=== PATIENT | female | born 1985 | race Caucasian/White ===

== ENCOUNTER 2016-07-24 05:17 | Day surgery (SDC) | payer OTHER ==
[2016-07-20 15:49] LABS: AGAP 13; BUN 3 mg/dL (8-22); CALCIUM 9.1 mg/dL (8.8-10.2); CHLORIDE 103 mmol/L (98-107); COSMO 277; POTASSIUM 4.4 mmol/L (3.5-5.1); SODIUM 141 mmol/L (136-145); TCO2 25 mmol/L (25-35)
[2016-07-20 16:17] LABS: HEMOGLOBIN 13.5 g/dL (12.0-16.0); MCHC 32.9 g/dL (33-37); MCV 88.2 FL (81-99); RBC 4.65 XMIL (4.2-5.4)
[2016-07-20 16:24] LABS: TOTAL BILIRUBIN 0.31 mg/dL (0.20-1.00)
[2016-07-24] MEDS ORDERED: REGLAN ONE (05:29)
[2016-07-24] MEDS ORDERED: PEPCID ONE (05:29)
[2016-07-24] MEDS ORDERED: KEFZOL 1 GM/D5W 50 ML ONE (05:29)
[2016-07-24] MEDS ORDERED: LR 1,000 ML ONE ×3 (05:29→08:55)
[2016-07-24] MEDS ORDERED: SODIUM CHLORIDE 0.9% ONE (06:26)
[2016-07-24] MEDS ORDERED: MARCAINE 0.25% PF/EPI 1:200,000 ONE (06:26)
[2016-07-24] MEDS: MORPHINE ONE ×2 (07:45→07:51)
[2016-07-24] MEDS ORDERED: VERSED ONE (07:47)
[2016-07-24] MEDS ORDERED: FENTANYL ONE (07:47)
[2016-07-24] MEDS ORDERED: DIPRIVAN 1% ONE (07:47)
[2016-07-24] MEDS ORDERED: ZOFRAN IV PRN (08:25)
[2016-07-24] MEDS ORDERED: NORCO-10 PO PRN (08:25)
--- NOTE | 2016-07-24 08:26 | Diag Imaging Result Document ---
PROCEDURE NAME: OPERATIVE CHOLANGIOGRAM - 07/24/2016 SINGLE VIEW FROM AN INTRAOPERATIVE CHOLANGIOGRAM TAKEN BY DR. CONCEPCION: FINDINGS: Contrast fills the common bile duct and is emptied into the duodenum. No stone or stricture. Total dose is 11.6 mGy. Fluoro time was 38 seconds.
[2016-07-24] MEDS ORDERED: NORCO-10 ONE (08:27)
--- NOTE | 2016-07-24 08:28 | OPERATIVE NOTE ---
PROCEDURE DATE: 07/24/2016 PROCEDURE PERFORMED: Laparoscopic cholecystectomy with operative cholangiogram. SURGEON: Ottoniel Whitlock MD. SUPERVISOR [employer] OUTFITTING: Tamara. PREOPERATIVE DIAGNOSIS: Biliary dyskinesia. POSTOPERATIVE DIAGNOSIS: Biliary dyskinesia. FINDINGS: Cholangiogram revealed a normal size common duct, free flow in the duodenum. No intraluminal filling defects were seen. DESCRIPTION OF PROCEDURE: Satisfactory general endotracheal anesthesia was achieved. The abdomen is prepped and draped in a sterile fashion. Local anesthesia was achieved with 0.25 Marcaine with epinephrine at the umbilicus in each trocar site. We incised the skin at the umbilicus and carried our incision down to the fascia. We scored the fascia, introduced 11 trocar Optiview technique into the abdominal cavity. We insufflated through this trocar. Under direct visualization, we introduced a 5 trocar midclavicular line, a 5 trocar near the anterior axillary line, and an 11 mm trocar in the midepigastrium. We placed the patient in reverse Trendelenburg and turned her to the left. We grasped the fundus of the gallbladder, reflected it cephalad, and began dissection of the triangle of Calot. We identified the cystic duct, clipped it near its junction of the gallbladder. We incised the cystic duct introduced a Malini catheter, shot a cholangiogram. The findings above were noted. We removed the cholangiogram catheter. We clipped the cystic duct on the opposite side of the cystic ductotomy x2 and then transected the cystic duct. The cystic artery was clipped proximally x2, distally x1, and divided. We used the cautery spatula to dissect the gallbladder away from the liver. After complete separation of gallbladder from liver, we changed the videolaparoscope to the mid epigastric trocar, introduced an EndoCatch, placed the gallbladder within the bag, and delivered out of the abdominal cavity. We looked back. Hemostasis was satisfactory. We then used a Rory-Navneet wound closure for the epigastric trocar site. We then desufflated, removed our trocars. We closed the fascia the umbilicus the 2- 0 Polysorb fascial stitch, then closed the skin at each incision 4-0 Polysorb subcuticular stitches. Sterile OpSite were applied. She tolerated it well. Was sent to the recovery room in satisfactory condition.
[2016-07-24] MEDS ORDERED: ZEMURON ONE (08:55)
[2016-07-24] MEDS ORDERED: DECADRON ONE (08:55)
[2016-07-24] MEDS ORDERED: ZOFRAN ONE (08:55)
[2016-07-24] MEDS ORDERED: XYLOCAINE-MPF 2% ONE (08:55)
[2016-07-24] MEDS ORDERED: QUELICIN (DOSE) ONE (08:55)
[2016-07-24] MEDS ORDERED: NEOSTIGMINE ONE (08:55)
[2016-07-24] MEDS ORDERED: ROBINUL ONE (08:55)
[2016-07-24] MEDS ORDERED: VITAMIN E PO SCH (09:00)
[2016-07-24] MEDS ORDERED: ZINC 50 MG PO SCH (09:00)
[2016-07-24] MEDS ORDERED: PRILOSEC PO SCH (09:00)
[2016-07-24] MEDS ORDERED: MV FE MIN PO SCH (09:00)
[2016-07-24] MEDS ORDERED: CALCIUM 1000 MG PO SCH (09:00)
[2016-07-24] MEDS ORDERED: NON-FORMULARY MED (Cyanocobalamin (Vitamin B-12) [Vitamin B-12] 1,000 MCG) PO SCH (09:00)
[2016-07-24] MEDS ORDERED: CELEXA PO SCH (09:00)
[2016-07-24] MEDS ORDERED: FOLIC ACID PO SCH (09:00)
[2016-07-24] MEDS ORDERED: THIAMINE MONONITRATE 100 MG PO SCH (09:00)
[2016-07-24] MEDS ORDERED: BIOTIN 1 MG PO SCH (09:00)
[2016-07-24] MEDS ORDERED: BACILLUS COAGULANS PO SCH (09:00)
[2016-07-24] MEDS ORDERED: MAGNESIUM 250 MG PO SCH (09:00)
[2016-07-24] MEDS ORDERED: PYRIDOXINE HCL 50 MG PO SCH (09:00)
[2016-07-24] MEDS ORDERED: WELLBUTRIN PO SCH (09:00)
[2016-07-24] MEDS ORDERED: VITAMIN D PO SCH (09:00)
[2016-07-24] MEDS ORDERED: FERROUS SULFATE PO SCH (09:00)
[2016-07-24] MEDS ORDERED: MELATONIN PO SCH (09:00)
[2016-07-24 14:49] VITALS: BP 114/70
== END 2016-07-24 14:15 | disposition home or self-care (01) ==
LOC: OPS 05:17
PROVIDERS: ATTEND Surgery
DX: K80.10 Calculus of gallbladder with chronic cholecystitis without obstruction (principal); K82.8 Other specified diseases of gallbladder; R11.0 Nausea; R10.9 Unspecified abdominal pain; K30 Functional dyspepsia; K21.9 Gastro-esophageal reflux disease without esophagitis; F41.9 Anxiety disorder, unspecified; F32.9 Major depressive disorder, single episode, unspecified; Z98.84 Bariatric surgery status; Z79.899 Other long term (current) drug therapy; Z83.3 Family history of diabetes mellitus
CPT/HCPCS: 74300; 80048; 82247; 84075; 84703; 85027; 88304; J0330; J0690; J1100; J2250; J2270; J2405; J3010; J7120; Q9966; J2710